=== PATIENT | male | born 1960 | race Caucasian/White ===

== ENCOUNTER 2018-07-13 16:46 | Outpatient (CLI) | payer BC ==
[2018-07-13 17:03] LABS: BASOPHILS # (AUTO) 0.1 10^3/uL (0.0-0.1); BASOPHILS % (AUTO) 0.9 %; EOSINOPHILS # (AUTO) 0.4 10^3/uL (0.0-0.7); EOSINOPHILS % (AUTO) 6.3 %; HGB - HEMOGLOBIN 13.9 g/dL (14.0-18.0); LYMPHOCYTES # (AUTO) 2.7 10^3/uL (1.5-3.5); LYMPHOCYTES % (AUTO) 40.3 %; MEAN CORPUSCULAR HEMOGLOBIN 29.9 pg (27.0-31.0); MEAN CORPUSCULAR HGB CONC 33.1 g/dL (32.0-36.0); MEAN CORPUSCULAR VOLUME 90.5 fL (80.0-94.0); MEAN PLATELET VOLUME 7.5 fL (7.4-11.4); MONOCYTES # (AUTO) 0.7 10^3/uL (0.0-1.0); MONOCYTES % (AUTO) 10.6 %; NEUTROPHILS # (AUTO) 2.8 10^3/uL (1.5-6.6); NEUTROPHILS % (AUTO) 41.9 %; PLT - PLATELET COUNT 295 10^3/uL (130-450); RED BLOOD COUNT 4.63 10^6/uL (4.70-6.10); RED CELL DISTRIBUTION WIDTH 13.8 % (12.0-15.0); WHITE BLOOD COUNT 6.7 x10^3/uL (4.8-10.8)
[2018-07-13 17:12] LABS: ALBUMIN 4.6 g/dL (3.2-5.5); ALBUMIN/GLOBULIN RATIO 1.3 (1.0-2.2); BILIRUBIN,TOTAL 0.4 mg/dL (0.2-1.0); CALCIUM 10.3 mg/dL (8.5-10.3); CREATININE 0.6 mg/dL (0.6-1.2); TOTAL PROTEIN 8.1 g/dL (6.7-8.2)
--- NOTE | 2018-07-14 13:36 | XRAY Report ---
Reason: ABDOMINAL PAIN,ACUTE Procedure Date: 07/13/2018 Accession Number: [id number] / [id number] Procedure: XR - Abdomen Acute CPT Code: FULL RESULT: EXAM: ABDOMINAL SERIES AND PA CHEST EXAM DATE: 07/13/2018 05:27 PM. CLINICAL HISTORY: ABDOMINAL PAIN,ACUTE. COMPARISON: None. TECHNIQUE: 3 views abdomen and 1 view chest. FINDINGS: CHEST: Lungs/Pleura: No focal opacities. No effusion or pneumothorax. Mediastinum: Within exam limitations, cardiomediastinal contour is normal. ABDOMEN: Bowel Gas Pattern: Within normal limits. No dilated loops or abnormal fluid levels. Free Air: None. Other: Surgical clips are seen in the right upper quadrant of the abdomen consistent with a previous cholecystectomy. Calcifications are seen within the pelvis that most likely represent phleboliths. There are degenerative changes of both hips, right greater than left. IMPRESSION: No evidence of a gastrointestinal obstruction. Moderate osteoarthritis of the right hip. Mild osteoarthritis of the left hip. RADIA
== END 2018-07-13 16:47 | disposition home or self-care (01) ==
LOC: DI 16:46
PROVIDERS: ATTEND Family Medicine
DX: R10.9 Unspecified abdominal pain (principal); M16.0 Bilateral primary osteoarthritis of hip
CPT/HCPCS: 36415; 74022; 80053; 82150; 83690; 85025

== ENCOUNTER 2018-12-22 07:27 | Outpatient (CLI) | payer BC ==
[2018-12-22 12:33] LABS: BASOPHILS % (AUTO) 1.1 %; EOSINOPHILS % (AUTO) 5.9 %; HGB - HEMOGLOBIN 14.1 g/dL (14.0-18.0); LYMPHOCYTES % (AUTO) 44.8 %; MEAN CORPUSCULAR HEMOGLOBIN 29.4 pg (27.0-31.0); MEAN CORPUSCULAR VOLUME 92.1 fL (80.0-94.0); MEAN PLATELET VOLUME 10.2 fL (7.4-11.4); MONOCYTES % (AUTO) 7.8 %; PLT - PLATELET COUNT 320 10^3/uL (130-450); RED BLOOD COUNT 4.79 10^6/uL (4.70-6.10); RED CELL DISTRIBUTION WIDTH 13.4 % (12.0-15.0); WHITE BLOOD COUNT 5.2 x10^3/uL (4.8-10.8)
[2018-12-22 12:37] LABS: ABNORMAL LYMPHS % (MANUAL) 0 %; BAND NEUTROPHILS % (MANUAL) 0 %
[2018-12-22 12:42] LABS: ALBUMIN 4.4 g/dL (3.2-5.5); ALBUMIN/GLOBULIN RATIO 1.3 (1.0-2.2); ALKALINE PHOSPHATASE 66 IU/L (42-121); ALT ALANINE AMINOTRANSFERASE 43 IU/L (10-60); AST ASPARTATE AMINOTRANSFERASE 28 IU/L (10-42); BILIRUBIN,TOTAL 1.2 mg/dL (0.2-1.0); BUN - BLOOD UREA NITROGEN 14 mg/dL (6-20); CALCIUM 9.9 mg/dL (8.5-10.3); CARBON DIOXIDE - CO2 24 mmol/L (21-32); CHLORIDE 101 mmol/L (101-111); CHOL/HDL RATIO 4.7 (<5.0); CHOLESTEROL 273 mg/dL; CREATININE 0.8 mg/dL (0.6-1.2); GFR - MDRD 99 (>89); GLUCOSE 108 mg/dL (70-100); HDL CHOLESTEROL 58 mg/dL; LDL CHOLESTEROL,CALCULATED 200 mg/dL; LDL/HDL RATIO 3.4 (<3.6); SODIUM 136 mmol/L (135-145); TOTAL PROTEIN 7.8 g/dL (6.7-8.2); VLDL CHOLESTEROL 15 mg/dL
[2018-12-22 12:59] LABS: EOSINOPHILS # (MANUAL) 0.2 10^3/uL (0-0.7); LYMPHOCYTES # (MANUAL) 2.8 10^3/uL (1.5-3.5); LYMPHOCYTES % (MANUAL) 54 %; MONOCYTES # (MANUAL) 0.2 10^3/uL (0.0-1.0); NEUTROPHILS % (MANUAL) 38 %
[2018-12-22 13:04] LABS: PLATELET ESTIMATE, MANUAL NORMAL (130-450,000) (NORMAL); PLATELET MORPHOLOGY NORMAL APPEARANCE (NORMAL); RBC MORPHOLOGY (MULTIPLE) NORMAL APPEARANCE (NORMAL)
[2018-12-22 13:05] LABS: DIFFERENTIAL COMMENT MANUAL DIFFERENTIAL
== END 2018-12-22 07:28 | disposition home or self-care (01) ==
LOC: LAB.WCP 07:27
PROVIDERS: ATTEND Physician Assistant Medical
DX: K21.9 Gastro-esophageal reflux disease without esophagitis (principal); R10.9 Unspecified abdominal pain; E78.5 Hyperlipidemia, unspecified; Z12.5 Encounter for screening for malignant neoplasm of prostate
CPT/HCPCS: 36415; 80053; 80061; 83721; 84153; 85025

== ENCOUNTER 2019-03-23 08:00 | Outpatient (CLI) | payer BC ==
[2019-03-23 13:19] LABS: ALBUMIN 4.5 g/dL (3.2-5.5); ALBUMIN/GLOBULIN RATIO 1.4 (1.0-2.2); ALKALINE PHOSPHATASE 60 IU/L (42-121); ALT ALANINE AMINOTRANSFERASE 39 IU/L (10-60); AST ASPARTATE AMINOTRANSFERASE 30 IU/L (10-42); BILIRUBIN,TOTAL 1.2 mg/dL (0.2-1.0); BUN - BLOOD UREA NITROGEN 12 mg/dL (6-20); CARBON DIOXIDE - CO2 26 mmol/L (21-32); CHLORIDE 103 mmol/L (101-111); CHOLESTEROL 275 mg/dL; CREATININE 0.8 mg/dL (0.6-1.2); GFR - MDRD 99 (>89); GLUCOSE 101 mg/dL (70-100); HDL CHOLESTEROL 60 mg/dL; LDL CHOLESTEROL,CALCULATED 197 mg/dL; LDL/HDL RATIO 3.3 (<3.6); SODIUM 136 mmol/L (135-145); TOTAL PROTEIN 7.7 g/dL (6.7-8.2); VLDL CHOLESTEROL 18 mg/dL
[2019-03-23 13:20] LABS: CHOL/HDL RATIO 4.6 (<5.0)
== END 2019-03-23 23:59 | disposition home or self-care (01) ==
LOC: LAB.WCP 08:00
PROVIDERS: ATTEND Physician Assistant Medical
DX: E78.5 Hyperlipidemia, unspecified (principal)
CPT/HCPCS: 36415; 80053; 80061; 83721

== ENCOUNTER 2019-06-20 07:02 | Outpatient (CLI) | payer BC ==
[2019-06-20 14:40] LABS: CHOL/HDL RATIO 3.1 (<5.0); CHOLESTEROL 188 mg/dL; HDL CHOLESTEROL 61 mg/dL; LDL CHOLESTEROL,CALCULATED 112 mg/dL; LDL/HDL RATIO 1.8 (<3.6); VLDL CHOLESTEROL 15 mg/dL
== END 2019-06-20 23:59 | disposition home or self-care (01) ==
LOC: LAB.WCP 07:02
PROVIDERS: ATTEND Physician Assistant Medical
DX: E78.5 Hyperlipidemia, unspecified (principal)
CPT/HCPCS: 36415; 80061; 83721

== ENCOUNTER → 2020-01-01 | Outpatient (CLI) | payer BC, OTHER ==
[2020-01-01 12:51] LABS: BASOPHILS % (AUTO) 0.9 %; EOSINOPHILS # (AUTO) 0.3 10^3/uL (0.0-0.7); EOSINOPHILS % (AUTO) 6.3 %; HGB - HEMOGLOBIN 14.4 g/dL (14.0-18.0); LYMPHOCYTES % (AUTO) 43.6 %; MEAN CORPUSCULAR HEMOGLOBIN 29.5 pg (27.0-31.0); MEAN CORPUSCULAR HGB CONC 32.1 g/dL (32.0-36.0); MEAN PLATELET VOLUME 10.2 fL (7.4-11.4); MONOCYTES # (AUTO) 0.4 10^3/uL (0.0-1.0); NEUTROPHILS # (AUTO) 1.9 10^3/uL (1.5-6.6); PLT - PLATELET COUNT 304 10^3/uL (130-450); RED BLOOD COUNT 4.88 10^6/uL (4.70-6.10); RED CELL DISTRIBUTION WIDTH 13.2 % (12.0-15.0); WHITE BLOOD COUNT 4.6 x10^3/uL (4.8-10.8)
[2020-01-01 13:05] LABS: ALBUMIN 4.7 g/dL (3.2-5.5); ALBUMIN/GLOBULIN RATIO 1.7 (1.0-2.2); ALKALINE PHOSPHATASE 64 IU/L (42-121); ALT ALANINE AMINOTRANSFERASE 42 IU/L (10-60); AST ASPARTATE AMINOTRANSFERASE 29 IU/L (10-42); BUN - BLOOD UREA NITROGEN 10 mg/dL (6-20); CALCIUM 9.7 mg/dL (8.5-10.3); CARBON DIOXIDE - CO2 26 mmol/L (21-32); CHLORIDE 102 mmol/L (101-111); CHOLESTEROL 194 mg/dL; CREATININE 0.8 mg/dL (0.6-1.2); GLUCOSE 110 mg/dL (70-100); HDL CHOLESTEROL 65 mg/dL; LDL CHOLESTEROL,CALCULATED 108 mg/dL; LDL/HDL RATIO 1.7 (<3.6); SODIUM 134 mmol/L (135-145); TOTAL PROTEIN 7.5 g/dL (6.7-8.2); VLDL CHOLESTEROL 21 mg/dL
== END ==
LOC: LAB.WCP 08:27
PROVIDERS: ATTEND Physician Assistant Medical
DX: Z00.00 Encounter for general adult medical examination without abnormal findings (principal); Z12.5 Encounter for screening for malignant neoplasm of prostate; E78.5 Hyperlipidemia, unspecified
CPT/HCPCS: 36415; 80053; 80061; 83721; 84153; 84443; 85025

== ENCOUNTER 2020-03-16 08:33 | Outpatient (CLI) | payer OTHER ==
--- NOTE | 2020-03-16 09:37 | XRAY Report ---
PROCEDURE: Lumbar Spine Complete INDICATIONS: LUMBAR RADICULOPATHY, RIGHT TECHNIQUE: 4 views of the lumbar spine were acquired. COMPARISON: MRI lumbar spine 09/28/2013 FINDINGS: Bones: 5 moa-liq-zzevlvo vertebrae are present. There is trace retrolisthesis of L1 on L2, L2 on L3 , L3 on L4, L4-L5 and L5 on S1. Mild multilevel degenerative disc space narrowing most notable at L3- 4, L4-5. Moderate to severe foraminal narrowing is present L5-S1, mild to moderate L4-5. No vertebral body compression fractures. No suspicious bony lesions. No bridging anterior osteophytes are noted . Soft tissues: Overlying bowel gas pattern is normal. No suspicious soft tissue calcifications. IMPRESSION: Degenerative changes most notable at L4-5 and L5-S1. Reviewed by: Leslie Baptiste MD on 03/16/2020 9:36 AM PDT Approved by: Leslie Baptiste MD on 03/16/2020 9:36 AM PDT Station ID: [id number]
== END 2020-03-16 08:34 | disposition home or self-care (01) ==
LOC: DI 08:33
PROVIDERS: ATTEND Family Medicine
DX: M43.16 Spondylolisthesis, lumbar region (principal); M43.17 Spondylolisthesis, lumbosacral region; M51.06 Intervertebral disc disorders with myelopathy, lumbar region; M48.07 Spinal stenosis, lumbosacral region
CPT/HCPCS: 72110

== ENCOUNTER 2020-06-26 08:00 | Outpatient (CLI) | payer OTHER ==
[2020-06-26 11:54] LABS: BASOPHILS % (AUTO) 0.6 %; EOSINOPHILS # (AUTO) 0.2 10^3/uL (0.0-0.7); EOSINOPHILS % (AUTO) 3.2 %; HGB - HEMOGLOBIN 14.8 g/dL (14.0-18.0); LYMPHOCYTES # (AUTO) 1.9 10^3/uL (1.5-3.5); MEAN CORPUSCULAR HEMOGLOBIN 30.2 pg (27.0-31.0); MEAN CORPUSCULAR HGB CONC 32.2 g/dL (32.0-36.0); MEAN CORPUSCULAR VOLUME 93.7 fL (80.0-94.0); MEAN PLATELET VOLUME 9.7 fL (7.4-11.4); MONOCYTES # (AUTO) 0.4 10^3/uL (0.0-1.0); MONOCYTES % (AUTO) 7.9 %; NEUTROPHILS # (AUTO) 2.2 10^3/uL (1.5-6.6); NEUTROPHILS % (AUTO) 48.1 %; PLT - PLATELET COUNT 319 10^3/uL (130-450); RED CELL DISTRIBUTION WIDTH 13.5 % (12.0-15.0); WHITE BLOOD COUNT 4.7 x10^3/uL (4.8-10.8)
[2020-06-26 12:40] LABS: ALBUMIN 4.9 g/dL (3.2-5.5); ALBUMIN/GLOBULIN RATIO 1.5 (1.0-2.2); BILIRUBIN,TOTAL 1.1 mg/dL (0.2-1.0); CALCIUM 10.7 mg/dL (8.5-10.3); CREATININE 0.8 mg/dL (0.6-1.2); TOTAL PROTEIN 8.1 g/dL (6.7-8.2)
[2020-06-26 13:04] LABS: H. PYLORIS ANTIGEN STL NEGATIVE (Negative)
== END 2020-06-26 23:59 ==
LOC: LAB.N 08:00
PROVIDERS: ATTEND Family Medicine
DX: R10.9 Unspecified abdominal pain (principal)
CPT/HCPCS: 36415; 80053; 82150; 83690; 85025; 87338

== ENCOUNTER 2021-01-28 08:00 | Outpatient (CLI) | payer OTHER ==
[2021-01-28 11:44] LABS: BASOPHILS % (AUTO) 0.9 %; EOSINOPHILS # (AUTO) 0.3 10^3/uL (0.0-0.7); EOSINOPHILS % (AUTO) 5.8 %; HCT - HEMATOCRIT 44.8 % (42.0-52.0); HGB - HEMOGLOBIN 14.6 g/dL (14.0-18.0); LYMPHOCYTES # (AUTO) 2.2 10^3/uL (1.5-3.5); LYMPHOCYTES % (AUTO) 46.5 %; MEAN CORPUSCULAR HEMOGLOBIN 30.3 pg (27.0-31.0); MEAN CORPUSCULAR HGB CONC 32.6 g/dL (32.0-36.0); MEAN CORPUSCULAR VOLUME 92.9 fL (80.0-94.0); MEAN PLATELET VOLUME 9.9 fL (7.4-11.4); MONOCYTES # (AUTO) 0.4 10^3/uL (0.0-1.0); MONOCYTES % (AUTO) 8.1 %; NEUTROPHILS # (AUTO) 1.8 10^3/uL (1.5-6.6); NEUTROPHILS % (AUTO) 38.5 %; PLT - PLATELET COUNT 286 10^3/uL (130-450); RED BLOOD COUNT 4.82 10^6/uL (4.70-6.10); RED CELL DISTRIBUTION WIDTH 13.4 % (12.0-15.0); WHITE BLOOD COUNT 4.7 x10^3/uL (4.8-10.8)
[2021-01-28 11:56] LABS: ALBUMIN 4.8 g/dL (3.2-5.5); ALBUMIN/GLOBULIN RATIO 1.7 (1.0-2.2); ALKALINE PHOSPHATASE 54 IU/L (42-121); ALT ALANINE AMINOTRANSFERASE 42 IU/L (10-60); AST ASPARTATE AMINOTRANSFERASE 28 IU/L (10-42); BILIRUBIN,TOTAL 1.3 mg/dL (0.2-1.0); BUN - BLOOD UREA NITROGEN 13 mg/dL (6-20); CHOL/HDL RATIO 3.3 (<5.0); CHOLESTEROL 212 mg/dL; CREATININE 0.8 mg/dL (0.6-1.2); GFR - MDRD 99 (>89); HDL CHOLESTEROL 64 mg/dL; LDL CHOLESTEROL,CALCULATED 133 mg/dL; LDL/HDL RATIO 2.1 (<3.6); TOTAL PROTEIN 7.6 g/dL (6.7-8.2); TRIGLYCERIDES 74 mg/dL; VLDL CHOLESTEROL 15 mg/dL
[2021-01-28 12:02] LABS: THYROID STIMULATING HORMONE 1.89 uIU/mL (0.34-5.60)
[2021-01-28 12:10] LABS: CALCIUM 10.1 mg/dL (8.5-10.3); CARBON DIOXIDE - CO2 27 mmol/L (21-32); CHLORIDE 103 mmol/L (101-111); GLUCOSE 108 mg/dL (70-100); POTASSIUM 4.2 mmol/L (3.5-5.0); SODIUM 137 mmol/L (135-145)
== END 2021-01-28 23:59 | disposition home or self-care (01) ==
LOC: LAB.WCP 08:00
PROVIDERS: ATTEND Physician Assistant Medical
DX: Z00.00 Encounter for general adult medical examination without abnormal findings (principal); Z12.5 Encounter for screening for malignant neoplasm of prostate
CPT/HCPCS: 36415; 80053; 80061; 83721; 84153; 84443; 85025

== ENCOUNTER 2021-12-12 16:57 | Outpatient (CLI) | payer OTHER ==
--- NOTE | 2021-12-12 17:48 | XRAY Report ---
PROCEDURE: Shoulder 3 View RT INDICATIONS: SHOULDER JOINT PAIN, RIGHT TECHNIQUE: 3 views of the shoulder were acquired. COMPARISON: None. FINDINGS: Bones: No fractures or dislocations. Moderate acromioclavicular joint and glenohumeral joint osteoa rthritic changes are seen. No suspicious bony lesions. Visualized ribs appear intact. Soft tissues: Amorphous calcifications adjacent to superior aspect of greater tuberosity is seen sugg estive of calcific tendinitis. IMPRESSION: Moderate right shoulder joint osteoarthritis. No fracture or dislocation. Suggestion of calcific tendinitis involving distal rotator cuff tendons. Reviewed by: Dwight Perez MD on 12/12/2021 5:47 PM PDT Approved by: Dwight Perez MD on 12/12/2021 5:47 PM PDT Station ID: [id number]
== END 2021-12-12 16:58 | disposition home or self-care (01) ==
LOC: DI.N 16:57
PROVIDERS: ATTEND Nurse Practitioner
DX: M19.011 Primary osteoarthritis, right shoulder (principal)

== ENCOUNTER 2022-01-28 07:35 | Outpatient (CLI) | payer OTHER ==
[2022-01-28 12:09] LABS: BASOPHILS # (AUTO) 0.1 10^3/uL (0.0-0.1); BASOPHILS % (AUTO) 1.2 %; EOSINOPHILS # (AUTO) 0.4 10^3/uL (0.0-0.7); HCT - HEMATOCRIT 43.3 % (42.0-52.0); HGB - HEMOGLOBIN 14.3 g/dL (14.0-18.0); LYMPHOCYTES # (AUTO) 2.4 10^3/uL (1.5-3.5); MEAN CORPUSCULAR VOLUME 90.8 fL (80.0-94.0); MONOCYTES # (AUTO) 0.4 10^3/uL (0.0-1.0); MONOCYTES % (AUTO) 8.3 %; NEUTROPHILS # (AUTO) 1.9 10^3/uL (1.5-6.6); NEUTROPHILS % (AUTO) 36.3 %; PLT - PLATELET COUNT 294 10^3/uL (130-450); RED BLOOD COUNT 4.77 10^6/uL (4.70-6.10); RED CELL DISTRIBUTION WIDTH 13.6 % (12.0-15.0); WHITE BLOOD COUNT 5.2 x10^3/uL (4.8-10.8)
[2022-01-28 12:32] LABS: ALBUMIN 4.7 g/dL (3.2-5.5); ALBUMIN/GLOBULIN RATIO 1.7 (1.0-2.2); ALKALINE PHOSPHATASE 54 IU/L (42-121); ALT ALANINE AMINOTRANSFERASE 34 IU/L (10-60); AST ASPARTATE AMINOTRANSFERASE 25 IU/L (10-42); BUN - BLOOD UREA NITROGEN 15 mg/dL (6-20); CALCIUM 10.4 mg/dL (8.5-10.3); CARBON DIOXIDE - CO2 28 mmol/L (21-32); CHLORIDE 103 mmol/L (101-111); CHOL/HDL RATIO 2.9 (<5.0); CHOLESTEROL 184 mg/dL; CREATININE 0.8 mg/dL (0.6-1.2); GFR - MDRD 98 (>89); GLUCOSE 106 mg/dL (70-100); HDL CHOLESTEROL 63 mg/dL; LDL CHOLESTEROL,CALCULATED 107 mg/dL; LDL/HDL RATIO 1.7 (<3.6); POTASSIUM 4.3 mmol/L (3.5-5.0); SODIUM 138 mmol/L (135-145); TOTAL PROTEIN 7.5 g/dL (6.7-8.2); TRIGLYCERIDES 70 mg/dL; VLDL CHOLESTEROL 14 mg/dL
[2022-01-28 12:40] LABS: THYROID STIMULATING HORMONE 2.1 uIU/mL (0.34-5.60)
== END 2022-01-28 07:36 | disposition home or self-care (01) ==
LOC: LAB.N 07:35
PROVIDERS: ATTEND Physician Assistant Medical
DX: Z00.00 Encounter for general adult medical examination without abnormal findings (principal); E78.5 Hyperlipidemia, unspecified; Z12.5 Encounter for screening for malignant neoplasm of prostate
CPT/HCPCS: 36415; 80053; 80061; 83721; 84153; 84443; 85025

== ENCOUNTER 2022-05-28 12:47 | Emergency (ER) | payer OTHER ==
[2022-05-28] MEDS ORDERED: KETOROLAC 60 MG/2 ML VIAL IM STA (14:39)
[2022-05-28] MEDS ORDERED: HYDROmorphone 1 MG/ML CARPUJECT IM STA (14:39)
[2022-05-28] MEDS ORDERED: predniSONE 20 MG TABLET PO STA (14:39)
[2022-05-28] MEDS ORDERED: oxyCODONE/ACET 5/325 Prepack 4 PO STA (14:39)
--- NOTE | 2022-05-28 14:44 | ED Physician Documentation ---
PD HPI BACK PAIN - Stated complaint Stated Complaint: BACK PX - Chief complaint Chief Complaint: Back Pain - History obtained from History obtained from: Patient - Additional information Additional information: 61-year-old gentleman with history of lumbar issues with 3 surgeries in the past most recently in 2014 has had about 2 months of worsening low back pain with radiation to the right buttock and right leg with numbness in the right lateral calf and the top of the foot. There is no associated incontinence, saddle anesthesia or fevers. He has been in physical therapy and been on Celebrex, i buprofen, and prednisone. The NSAIDs were helping but over the last few days are no longer effective. Review of Systems Constitutional: reports: Reviewed and negative Nose: reports: Reviewed and negative Cardiac: reports: Reviewed and negative Respiratory: reports: Reviewed and negative PD PAST MEDICAL HISTORY - Present Medications Home Medications: Ambulatory Orders Medication Instructions Recorded Confirmed Atorvastatin [Lipitor] 1 tab PO DAILY 05/28/22 05/28/22 Duloxetine HCl [Cymbalta] 60 mg PO DAILY 05/28/22 05/28/22 Ibuprofen [Motrin] 1 tablet PO Q8H PRN 05/28/22 05/28/22 Oxycodone HCl/Acetaminophen 1 - 2 each PO Q6H PRN #20 tablet 05/28/22 [Percocet 5-325 mg Tablet] predniSONE [Deltasone] 20 mg PO [id number] #21 tab 05/28/22 - Allergies Allergies/Adverse Reactions: Allergies Allergy/AdvReac Type Severity Reaction Status Date / Time No Known Drug Allergies Allergy Verified 05/28/22 13:12 PD ED PE NORMAL - Vitals Vital signs reviewed: Yes - General General: Alert and oriented X 3, No acute distress - HEENT HEENT: PERRL, EOMI - Neck Neck: Supple, no meningeal sign, No bony TTP - Extremities Extremities: Other (Diminished sensation in a right L4-L5 distribution but intact Achilles and patellar reflexes. No midline spinal tenderness. Normal gait.) - Neuro Neuro: Alert and oriented X 3, Normal speech Results - Vitals Vitals: Vital Signs - 24 hr 05/28/22 05/28/22 13:06 14:53 Temperature 37.1 C 36.6 C Heart Rate 104 H 99 Respiratory 18 16 Rate Blood Pressure 161/104 H 160/80 H O2 Saturation 99 100 Oxygen O2 Source Room air PD MEDICAL DECISION MAKING - ED course ED course: This patient has seemingly uncomplicated musculoskeletal back pain. The patient has no "red flags." Specifically denies IV drug use, fevers, incontinence, saddle anesthesia. Spinal epidural abscess was considered, given that the patient has no fever, is not diabetic, has no spinal tenderness, does not use IV drugs, and has no bilateral neurologic symptoms, the diagnosis of spinal epidural abscess is considered exceedingly unlikely. Departure - Departure Disposition: 01 Home, Self Care Clinical Impression: Lumbar radiculopathy Condition: Good Record reviewed to determine appropriate education?: Yes Instructions: ED Sciatica Prescriptions: predniSONE [Deltasone] 20 mg PO [id number] #21 tab Oxycodone HCl/Acetaminophen [Percocet 5-325 mg Tablet] 1 - 2 each PO Q6H PRN #20 tablet PRN Reason: pain Comments: As discussed, based on the location of your symptoms I suspect you have a right- sided disc herniation at L4-L5. You should follow-up with the sports medicine doctor as you have planned. In the meantime I sent your prescriptions electronically to the [facility] in [place]. I am prescribing a short course of narcotic pain medication for you. These are potentially dangerous and addictive medications that should be used carefully. These medications may constipate you. Take an klnq-sic-igrsqqa stool softener (docusate) twice daily with plenty of water while taking these medications. If you go 24 hours without a bowel movement, take fgwi-tbg-nsiykwx miralax, per package instructions. Do not drink or drive while taking these medications. If you received narcotic or sedating medications while in the emergency department, do not drive for 24 hours. Store this medication in a safe, secure place and out of reach of children. It is a violation of federal law to give or sell this medication to another person or to use in a manner other than prescribed. The ED will not refill narcotic prescriptions, including prescriptions lost or stolen. To dispose of unwanted medications: 1. [facility] at [address] in [place] has a medication drop box. They accept prescription medications (in pill form) Wednesday through Wednesday 9:00 a.m. to 5:00 p.m. 2. The [facility] [employer] accepts prescription medications (in pill form only) for disposal year round. Call for more information. 3. Contact the [facility] for the next [facility] sponsored prescription drug collection event. , [phone], or [phone]; Note that many narcotic pain relievers also contain Tylenol/acetaminophen. Please ensure that your total dose of acetaminophen from all sources does not exceed 3 g (3000 mg) per day. Discharge Date/Time: 05/28/22 15:11
[2022-05-28 14:54] VITALS: BP 160/80
== END 2022-05-28 15:11 | disposition home or self-care (01) ==
LOC: ED 12:47
DX: M54.16 Radiculopathy, lumbar region (principal)
CPT/HCPCS: 96372; 99283; J1170; J7512

== ENCOUNTER 2022-06-04 11:25 | Emergency (ER) | payer OTHER ==
[2022-06-04 12:41] LABS: BASOPHILS % (AUTO) 0.1 %; EOSINOPHILS % (AUTO) 0.2 %; HCT - HEMATOCRIT 44.1 % (42.0-52.0); HGB - HEMOGLOBIN 15.1 g/dL (14.0-18.0); LYMPHOCYTES # (AUTO) 1.5 10^3/uL (1.5-3.5); LYMPHOCYTES % (AUTO) 15.3 %; MEAN CORPUSCULAR HEMOGLOBIN 30.4 pg (27.0-31.0); MEAN CORPUSCULAR HGB CONC 34.2 g/dL (32.0-36.0); MEAN CORPUSCULAR VOLUME 88.9 fL (80.0-94.0); MEAN PLATELET VOLUME 8.9 fL (7.4-11.4); MONOCYTES # (AUTO) 0.9 10^3/uL (0.0-1.0); MONOCYTES % (AUTO) 9.4 %; NEUTROPHILS # (AUTO) 7.3 10^3/uL (1.5-6.6); NEUTROPHILS % (AUTO) 74.6 %; PLT - PLATELET COUNT 326 10^3/uL (130-450); RED BLOOD COUNT 4.96 10^6/uL (4.70-6.10); WHITE BLOOD COUNT 9.8 x10^3/uL (4.8-10.8)
[2022-06-04] MEDS ORDERED: MORPHINE 2 MG/ML CARPUJECT IVP STA ×3 (12:43→16:58)
--- NOTE | 2022-06-04 12:45 | ED Physician Documentation ---
History of Present Illness - Stated complaint Stated Complaint: BACK PX - Chief complaint Chief Complaint: Neuro - History obtained from History obtained from: Patient - Additonal information Additional information: This is a very nice 61-year-old male with a past medical history of multiple back surgeries, L4-L5 bulging disc, and left-sided piriformis syndrome who presents with worsening lower lumbar pain radiating to the right leg now accompanied by some numbness in the perianal area and patient was not aware that he was having bowel movements both yesterday and today. The patient has a histor y of multiple back issues and was seen here for similar about a week ago at which time his work-up was stable and he was referred to sports medicine for likely bulging disks. The patient has also been referred to neurosurgery at [facility] though he has not been able to make an appointment yet because he has needed an MRI before he can make that appointment. Patient states over the course last week, his pain has gotten worse. He was seen here on and then followed up with his PCP on Wednesday who started him on Lyrica which she states is helping somewhat and he is taking 1 tablet of oxycodone every 6 hours or so as well as continuing the prednisone taper that was prescribed last week. He states no significant improvement in the pain and he was concerned today due to the fact that he sat on to have a bowel movement on 2 different occasions and was not aware that any stool had come out until he stood up and left in the toilet. He denies any numbness in the pelvis, but does have some numbness in the right buttocks into the perianal area and has increasing pain so much so that he really has difficulty moving at all. He has some pain radiating down the leg, does not have any foot drop of the right or left foot, he has not had any fever, no history of IV drug use, no history of epidural abscess. He denies any falls or trauma recently. Review of Systems Ten Systems: 10 systems reviewed and negative (Except as noted in HPI.) PD PAST MEDICAL HISTORY - Past Medical History Past Medical History: Yes Other Past Medical History: Chronic lumbar pain - Past Surgical History Past Surgical History: Yes Ortho: Spine surgery - Present Medications Home Medications: Ambulatory Orders Medication Instructions Recorded Confirmed Atorvastatin [Lipitor] 1 tab PO DAILY 05/28/22 05/28/22 Duloxetine HCl [Cymbalta] 60 mg PO DAILY 05/28/22 05/28/22 Ibuprofen [Motrin] 1 tablet PO Q8H PRN 05/28/22 05/28/22 Oxycodone HCl/Acetaminophen 1 - 2 each PO Q6H PRN #20 tablet 05/28/22 [Percocet 5-325 mg Tablet] predniSONE [Deltasone] 20 mg PO [id number] #21 tab 05/28/22 oxyCODONE/ACET 5/325 [Percocet 5 1 each PO ONCE #14 tablet 06/04/22 mg/325 mg] - Allergies Allergies/Adverse Reactions: Allergies Allergy/AdvReac Type Severity Reaction Status Date / Time No Known Drug Allergies Allergy Verified 06/04/22 12:21 - Social History Does the pt smoke?: No Smoking Status: Never smoker Does the pt have substance abuse?: No - Immunizations Immunizations are current?: Yes - POLST Patient has POLST: No PD ED PE NORMAL - Vitals Vital signs reviewed: Yes - General General: Alert and oriented X 3, No acute distress, Well developed/nourished - HEENT HEENT: Atraumatic, Pharynx benign - Cardiac Cardiac: RRR, No murmur - Respiratory Respiratory: No respiratory distress, Clear bilaterally - Abdomen Abdomen: Normal bowel sounds, Soft, Non tender, Non distended - Derm Derm: Normal color, Warm and dry - Extremities Extremities: No deformity, Other (Slight decrease in strength of the right foot as compared to left. The patient is able to lift Right leg off the bed with no significant lower back pain. He has normal sensation of the entire leg but decreased sensation of the right buttocks. There is tenderness at the lumbosacral spine with no s) - Neuro Neuro: Alert and oriented X 3 Eye Opening: Spontaneous Motor: Obeys Commands Verbal: Oriented GCS Score: 15 - Psych Psych: Normal mood, Normal affect Results - Vitals Vitals: Vital Signs - 24 hr 06/04/22 06/04/22 06/04/22 12:16 13:17 16:09 Temperature 36.8 C Heart Rate 74 88 88 Respiratory 14 15 14 Rate Blood Pressure 157/92 H 131/70 H 127/66 O2 Saturation 95 96 97 06/04/22 16:56 Temperature Heart Rate 88 Respiratory 14 Rate Blood Pressure 131/69 H O2 Saturation 97 Oxygen O2 Source Room air - Labs Labs: Laboratory Tests 06/04/22 06/04/22 06/04/22 12:36 12:36 12:54 WBC 9.8 RBC 4.96 Hgb 15.1 Hct 44.1 MCV 88.9 MCH 30.4 MCHC 34.2 RDW 13.0 Plt Count 326 MPV 8.9 Neut # (Auto) 7.3 H Lymph # (Auto) 1.5 [place] # (Auto) 0.9 Eos # (Auto) 0.0 Baso # (Auto) 0.0 Absolute Nucleated RBC 0.00 Nucleated RBC % 0.0 Sodium 134 L Potassium 4.0 Chloride 98 L Carbon Dioxide 27 Anion Gap 9.0 BUN 18 Creatinine 0.9 Estimated GFR (MDRD) 86 L Glucose 110 H Calcium 10.5 H Urine Color YELLOW Urine Clarity CLEAR Urine pH 6.5 Ur Specific Agate 1.010 Urine Protein NEGATIVE Urine Glucose (UA) NEGATIVE Urine Ketones NEGATIVE Urine Occult Blood NEGATIVE Urine Nitrite NEGATIVE Urine Bilirubin NEGATIVE Urine Urobilinogen 1 (NORMAL) Ur Leukocyte Esterase NEGATIVE Urine RBC None Seen Urine WBC 0-3 Ur Squamous Epith Cells NONE SEEN Urine Bacteria None Seen Urine Culture Comments NOT INDICATED PD MEDICAL DECISION MAKING - ED course Complexity details: reviewed old records, reviewed results, re-evaluated patient, considered differential, d/w patient, d/w family ED course: This is a 61-year-old male with past medical history as noted above who presented with ongoing right lower back pain radiating to the right buttocks with some numbness and difficulty Feeling bowel movements over the course of the last day though no other focal neuro changes, no foot drop, no saddle anesthesia. His pain had also increased and was not relieved by the pain regimen that he has been using at home. Therefore did obtain an MRI given patient's history of back surgeries, and his new numbness and this showed L5-S1 disc protrusion which is likely causing the patient's symptoms. He does not need immediate transfer for neurosurgery however was advised that he will need close outpatient follow-up and may be a surgical candidate if no improvement in his symptoms with supportive measures and physical therapy. He has asked me to fax his MRI results to Dr. Joy his back surgeon's office which has been done and a copy of the disc was provided to the patient to take to his appointment. We will discharge him home with an additional short course of oxycodone and instructions and precautions given for release of this narcotic medication. He was advised to continue the other medications he is previously been prescribed and follow-up with his PCP for ongoing pain management. He is able to get into neurosurgery. Return precautions reviewed if he had Saddle anesthesia, incontinence or difficulty with urination, foot drop or drag, or other new concerns. Departure - Departure Disposition: 01 Home, Self Care Clinical Impression: Degeneration of intervertebral disc at L5-S1 level Condition: Good Instructions: Lumbar Pain Causes, Lumbar Radiculopathy Prescriptions: oxyCODONE/ACET 5/325 [Percocet 5 mg/325 mg] 1 each PO ONCE #14 tablet Comments: Your MRI showed multilevel degenerative changes throughout the lumbar spine which is similar to the prior MRI however you do have some extrusion of the disc at the L5-S1 level which is causing the increased pain and symptoms that you are feeling. Treatment is the same as previously discussed, largely supportive including pain medication and physical therapy though you should follow-up with the spine surgeon to discuss other options as well. Please follow up with spine surgery as soon as appointment available. Avoid lifting/twisting until then. See sports medicine and PT as previously discussed. A short course of narcotic pain medication was given. Return if new or worsening symptoms Including difficulty with urination, groin numbness, fever, leg weakness or foot drop/drag.
[2022-06-04 12:51] LABS: CALCIUM 10.5 mg/dL (8.5-10.3); CREATININE 0.9 mg/dL (0.6-1.2)
[2022-06-04 13:13] LABS: BILIRUBIN,URINE NEGATIVE (NEGATIVE); GLUCOSE, URINE (UA) NEGATIVE (NEGATIVE); KETONES,URINE (UA) NEGATIVE (NEGATIVE); LEUKOCYTE ESTERASE, URINE NEGATIVE (NEGATIVE); NITRITE,URINE NEGATIVE (NEGATIVE); OCCULT BLOOD,URINE NEGATIVE (NEGATIVE); PH,URINE 6.5 PH (5.0-7.5); PROTEIN,URINE NEGATIVE (NEGATIVE); UROBILINOGEN,URINE 1 (NORMAL) E.U./dL (NORMAL)
[2022-06-04 13:19] LABS: BACTERIA,URINE None Seen /HPF (None Seen); CLARITY,URINE CLEAR (CLEAR); RBC,URINE None Seen /HPF (0-5); SQUAMOUS EPITHELIAL CELL,UR NONE SEEN (<= Few); WBC,URINE 0-3 /HPF (0-3)
[2022-06-04] MEDS ORDERED: GADOBUTROL 10 MMOL/10 ML VIAL ONE (15:11)
[2022-06-04] MEDS ORDERED: GADOBUTROL 10 MMOL/10 ML VIAL IVP ONE (15:38)
--- NOTE | 2022-06-04 16:34 | MRI Report ---
PROCEDURE: LUMBAR SPINE W/WO INDICATIONS: worsening L4-5 pain, new bowel incontinence TECHNIQUE: Noncontrast sagittal T1 spin echo and T2 fast spin echo, sagittal STIR, axial T1 and T2 fast spin ech o through the lumbar spine. In cases with scoliosis, additional coronal T2 fast spin echo may be per formed. After the administration of contrast, sagittal and axial T1 spin echo with fat saturation th rough the lumbar spine. COMPARISON: MRI lumbar spine 09/08/2013, x-ray spine 03/16/2020 FINDINGS: Image quality: Excellent. Alignment and curvature: There is normal bony alignment. Marrow: Marrow is of normal overall signal. Schmorl's node is noted along the superior endplate of T12 with minimal reactive change. No acute vertebral body compression fractures. No suspicious marro w enhancement. Spinal cord: Conus medullaris terminates at the L2 level. Visualized spinal cord demonstrates raul l signal, without suspicious enhancement. Paraspinous soft tissues: No paravertebral masses or abnormal enhancement. Discs: Minimal scattered disc desiccation is present throughout the lumbar spine. L1-L2: No disc bulge, spinal stenosis or foraminal narrowing. No interval change. L2-L3: Minimal disc bulge with unchanged trace canal narrowing. No foraminal narrowing. Minimal ep idural lipomatosis. Mild facet and ligamentum flavum hypertrophy. L3-L4: Minimal disc bulge without spinal stenosis. Minimal to mild bilateral foraminal narrowing sl ightly progressive. Minimal epidural lipomatosis. Facet and ligamentum flavum hypertrophy are present . L4-L5: Mild disc bulge without spinal stenosis. Right hemilaminectomy is present. There is narrowin g of the foramina bilaterally without interval change. L5-S1: Mild disc bulge with superimposed right posterior paracentral protrusion with small extrusio n. There is significant compromise of the right lateral recess. Mild bilateral foraminal narrowing IMPRESSION: Multilevel degenerative changes overall stable compared to prior exam. However, it is noted there is a new extrusion at L5-S1 causing significant compromise of the right lateral recess. Reviewed by: Leslie Baptiste MD on 06/04/2022 4:33 PM PST Approved by: Leslie Baptiste MD on 06/04/2022 4:33 PM PST Station ID: [id number]
[2022-06-04 17:36] VITALS: BP 130/70
== END 2022-06-04 17:37 | disposition home or self-care (01) ==
LOC: EDUNIT# 11:25 → ED 11:25
DX: M51.27 Other intervertebral disc displacement, lumbosacral region (principal); M51.37 Other intervertebral disc degeneration, lumbosacral region
CPT/HCPCS: 36415; 72158; 80048; 81001; 85025; 96374; 96376; 99284; A9585; 87086

== ENCOUNTER → 2022-06-04 | Outpatient (CLI) | payer OTHER | END | disposition critical access hospital (66) | LOC: EMS 11:20 | DX: M54.50 Low back pain, unspecified (principal); R20.0 Anesthesia of skin | CPT/HCPCS: A0425; A0427 ==

== ENCOUNTER 2022-11-11 09:26 | Outpatient (CLI) | payer OTHER ==
--- NOTE | 2022-11-11 11:14 | XRAY Report ---
PROCEDURE: Lumbar Spine 2 View INDICATIONS: S/P LUMBAR SPINAL FUSION TECHNIQUE: 3 views of the lumbar spine were acquired. COMPARISON: Plain film 12/12/2021, lumbar spine MRI 06/04/2022 FINDINGS: Bones: 5 vmu-hvz-sxcpdmu vertebrae are present. L4-S1 posterior fusion and disc spacer hardware is p resent and intact. There is normal bony alignment. Mild posterior disc height loss at L3-4 and partia lly imaged at T12-L1. No vertebral body compression fractures. No suspicious bony lesions. Soft tissues: Overlying bowel gas pattern is normal. No suspicious soft tissue calcifications. Cho lecystectomy clips. IMPRESSION: 1. Intact lumbosacral fusion hardware with maintenance of normal alignment. 2. Otherwise minor degenerative changes. Reviewed by: Ciara Payton MD on 11/11/2022 11:12 AM PDT Approved by: Ciara Payton MD on 11/11/2022 11:12 AM PDT Station ID: [id number]
== END 2022-11-11 09:27 | disposition home or self-care (01) ==
LOC: DI 09:26
PROVIDERS: ATTEND Physician Assistant
DX: M47.816 Spondylosis without myelopathy or radiculopathy, lumbar region (principal); Z98.1 Arthrodesis status

== ENCOUNTER 2022-12-14 16:13 | Emergency (ER) | payer OTHER ==
[2022-12-14 16:29] VITALS: BP 159/103
--- NOTE | 2022-12-14 16:43 | ED Physician Documentation ---
History of Present Illness - Stated complaint Stated Complaint: RT FT/VIVAR NUMB - Chief complaint Chief Complaint: Ext Problem - History obtained from History obtained from: Patient - Additonal information Additional information: 62-year-old gentleman had a lumbar radiculopathy at L5-S1 due to disc herniation and had a discectomy with L4-S1 fusion at [facility] in August. He is always had some numbness in the right leg on the top of the foot but has been worse with increased activity over the last few days. He denies any back or other pains with this. No saddle anesthesia, bowel or bladder incontinence or fevers. PD PAST MEDICAL HISTORY - Past Surgical History Past Surgical History: Yes Ortho: Spine surgery - Present Medications Home Medications: Ambulatory Orders Medication Instructions Recorded Confirmed Atorvastatin [Lipitor] 1 tab PO DAILY 05/28/22 05/28/22 Duloxetine HCl [Cymbalta] 60 mg PO DAILY 05/28/22 05/28/22 Ibuprofen [Motrin] 1 tablet PO Q8H PRN 05/28/22 05/28/22 Oxycodone HCl/Acetaminophen 1 - 2 each PO Q6H PRN #20 tablet 05/28/22 [Percocet 5-325 mg Tablet] predniSONE [Deltasone] 20 mg PO [id number] #21 tab 05/28/22 oxyCODONE/ACET 5/325 [Percocet 5 1 each PO ONCE #14 tablet 06/04/22 mg/325 mg] - Allergies Allergies/Adverse Reactions: Allergies Allergy/AdvReac Type Severity Reaction Status Date / Time No Known Drug Allergies Allergy Verified 12/14/22 16:25 - Social History Does the pt smoke?: No Smoking Status: Never smoker Does the pt have substance abuse?: No - Immunizations Immunizations are current?: Yes - POLST Patient has POLST: No PD ED PE NORMAL - Vitals Vital signs reviewed: Yes - General General: Alert and oriented X 3, No acute distress - Abdomen Abdomen: Non tender - Extremities Extremities: Other (The patient has equal and normal Achilles unable to check left patellar reflex due to ankle fusion on that side. Normal sensation in all areas of the legs. Patient denies saddle anesthesia. Normal strength in flexion-extension at the ankles, knees, and flexion of the hips.) - Neuro Neuro: Alert and oriented X 3, Normal speech Results - Vitals Vitals: Vital Signs - 24 hr 06/12/23 16:21 Temperature 36.7 C Heart Rate 98 Respiratory 16 Rate Blood Pressure 159/103 H O2 Saturation 99 Oxygen O2 Source Room air PD Medical Decision Making - ED course ED course: He was sent in from [facility] for concern for stroke, but this is an exacerbation of his prior radiculopathy. There are no symptoms or signs in the arm or face. We discussed repeat MRI but there is no urgent indication for this. I offered a course of steroids which she declined finding them unhelpful with side effects in the past. Departure - Departure Disposition: 01 Home, Self Care Clinical Impression: Lumbar radiculopathy Condition: Good Record reviewed to determine appropriate education?: Yes Instructions: ED Sciatica Comments: As discussed, it is okay I think to avoid steroids as many people do not find them helpful. You could trial some NSAIDs, perhaps 600 mg of ibuprofen 3-4 times a day for the next few days. Would not want you taking it for more than a week due to side effects either. Scale back on your physical activity just a bit and follow-up with your surgeon if not better in a week or 2.
== END 2022-12-14 16:55 | disposition home or self-care (01) ==
LOC: ED 16:13
DX: M54.16 Radiculopathy, lumbar region (principal)
CPT/HCPCS: 99281; 99283

== ENCOUNTER 2022-12-23 09:30 | Outpatient (CLI) | payer OTHER ==
[2022-12-24 06:39] LABS: RPR Non Reactive (Non Reactive)
[2022-12-24 07:10] LABS: HSV 1 IGG TYPE SPEC <0.91 index (0.00-0.90); HSV 2 IGG TYPE SPEC <0.91 index (0.00-0.90)
== END 2022-12-23 09:45 | disposition home or self-care (01) ==
LOC: LAB.N 09:30
PROVIDERS: ATTEND Registered Nurse
DX: N48.9 Disorder of penis, unspecified (principal)
CPT/HCPCS: 36415; 86592; 86695; 86696; 87070; 87077; 87205; 87252

== ENCOUNTER 2023-01-25 09:15 | Outpatient (CLI) | payer OTHER | END 2023-01-25 09:30 | disposition home or self-care (01) | LOC: LAB.N 09:15 | PROVIDERS: ATTEND Nurse Practitioner | DX: N48.9 Disorder of penis, unspecified (principal) | CPT/HCPCS: 87070; 87077; 87205; 87255 ==

== ENCOUNTER 2023-01-29 08:28 | Outpatient (CLI) | payer OTHER ==
[2023-01-29 12:32] LABS: BASOPHILS # (AUTO) 0.1 10^3/uL (0.0-0.1); BASOPHILS % (AUTO) 1.1 %; EOSINOPHILS # (AUTO) 0.2 10^3/uL (0.0-0.7); EOSINOPHILS % (AUTO) 4.8 %; HCT - HEMATOCRIT 44.3 % (42.0-52.0); HGB - HEMOGLOBIN 14.3 g/dL (14.0-18.0); LYMPHOCYTES # (AUTO) 1.9 10^3/uL (1.5-3.5); LYMPHOCYTES % (AUTO) 42.9 %; MEAN CORPUSCULAR HEMOGLOBIN 29.4 pg (27.0-31.0); MEAN CORPUSCULAR HGB CONC 32.3 g/dL (32.0-36.0); MEAN CORPUSCULAR VOLUME 91.2 fL (80.0-94.0); MEAN PLATELET VOLUME 10.1 fL (7.4-11.4); MONOCYTES # (AUTO) 0.3 10^3/uL (0.0-1.0); MONOCYTES % (AUTO) 7.8 %; NEUTROPHILS # (AUTO) 1.9 10^3/uL (1.5-6.6); NEUTROPHILS % (AUTO) 43.4 %; PLT - PLATELET COUNT 293 10^3/uL (130-450); RED BLOOD COUNT 4.86 10^6/uL (4.70-6.10); RED CELL DISTRIBUTION WIDTH 14.3 % (12.0-15.0); WHITE BLOOD COUNT 4.4 x10^3/uL (4.8-10.8)
[2023-01-29 12:50] LABS: ALBUMIN 4.7 g/dL (3.2-5.5); ALBUMIN/GLOBULIN RATIO 1.9 (1.0-2.2); ALKALINE PHOSPHATASE 77 IU/L (42-121); ALT ALANINE AMINOTRANSFERASE 34 IU/L (10-60); AST ASPARTATE AMINOTRANSFERASE 22 IU/L (10-42); BUN - BLOOD UREA NITROGEN 13 mg/dL (6-20); CALCIUM 10.6 mg/dL (8.5-10.3); CARBON DIOXIDE - CO2 29 mmol/L (21-32); CHLORIDE 103 mmol/L (101-111); CHOLESTEROL 213 mg/dL; CREATININE 0.8 mg/dL (0.6-1.3); GFR - MDRD 98 (>89); GLUCOSE 112 mg/dL (74-104); HDL CHOLESTEROL 70 mg/dL; LDL CHOLESTEROL,CALCULATED 131 mg/dL; LDL/HDL RATIO 1.9 (<3.6); LIPASE 61 U/L (11-82); POTASSIUM 4.1 mmol/L (3.5-4.5); SODIUM 136 mmol/L (135-145); TOTAL PROTEIN 7.2 g/dL (6.4-8.9); TRIGLYCERIDES 60 mg/dL (48-352); VLDL CHOLESTEROL 12 mg/dL
[2023-01-29 13:01] LABS: THYROID STIMULATING HORMONE 1.82 uIU/mL (0.34-5.60)
== END 2023-01-29 08:29 | disposition home or self-care (01) ==
LOC: LAB.N 08:28
PROVIDERS: ATTEND Physician Assistant Medical
DX: E78.5 Hyperlipidemia, unspecified (principal); K21.9 Gastro-esophageal reflux disease without esophagitis; Z12.5 Encounter for screening for malignant neoplasm of prostate; Z13.29 Encounter for screening for other suspected endocrine disorder; Z79.899 Other long term (current) drug therapy
CPT/HCPCS: 36415; 80053; 80061; 83690; 83721; 84153; 84443; 85025

== ENCOUNTER 2024-02-07 07:34 | Outpatient (CLI) | payer OTHER ==
[2024-02-07 07:45] LABS: BASOPHILS # (AUTO) 0.1 10^3/uL (0.0-0.1); BASOPHILS % (AUTO) 1.4 %; EOSINOPHILS # (AUTO) 0.6 10^3/uL (0.0-0.7); EOSINOPHILS % (AUTO) 12.1 %; HCT - HEMATOCRIT 43.1 % (42.0-52.0); HGB - HEMOGLOBIN 14.4 g/dL (14.0-18.0); LYMPHOCYTES % (AUTO) 41.4 %; MEAN CORPUSCULAR HEMOGLOBIN 30.7 pg (27.0-31.0); MEAN CORPUSCULAR HGB CONC 33.4 g/dL (32.0-36.0); MEAN CORPUSCULAR VOLUME 91.9 fL (80.0-94.0); MEAN PLATELET VOLUME 9.1 fL (7.4-11.4); MONOCYTES # (AUTO) 0.3 10^3/uL (0.0-1.0); NEUTROPHILS # (AUTO) 1.9 10^3/uL (1.5-6.6); NEUTROPHILS % (AUTO) 37.9 %; PLT - PLATELET COUNT 270 10^3/uL (130-450); RED BLOOD COUNT 4.69 10^6/uL (4.70-6.10); RED CELL DISTRIBUTION WIDTH 13.1 % (12.0-15.0); WHITE BLOOD COUNT 4.9 x10^3/uL (4.8-10.8)
[2024-02-07 08:12] LABS: ALBUMIN 4.8 g/dL (3.2-5.5); ALKALINE PHOSPHATASE 64 IU/L (42-121); ALT ALANINE AMINOTRANSFERASE 32 IU/L (10-60); AST ASPARTATE AMINOTRANSFERASE 22 IU/L (10-42); BUN - BLOOD UREA NITROGEN 11 mg/dL (6-20); CALCIUM 10.3 mg/dL (8.5-10.3); CARBON DIOXIDE - CO2 29 mmol/L (21-32); CHLORIDE 103 mmol/L (101-111); CHOL/HDL RATIO 2.9 (<5.0); CHOLESTEROL 183 mg/dL; CREATININE 0.8 mg/dL (0.6-1.3); GFR - MDRD 98 (>89); GLUCOSE 118 mg/dL (74-104); HDL CHOLESTEROL 64 mg/dL; LDL CHOLESTEROL,CALCULATED 106 mg/dL; LDL/HDL RATIO 1.7 (<3.6); POTASSIUM 4.2 mmol/L (3.5-4.5); SODIUM 136 mmol/L (135-145); TOTAL PROTEIN 7.2 g/dL (6.4-8.9); TRIGLYCERIDES 65 mg/dL; VLDL CHOLESTEROL 13 mg/dL
[2024-02-07 08:23] LABS: THYROID STIMULATING HORMONE 2.94 uIU/mL (0.34-5.60)
== END 2024-02-07 07:35 | disposition home or self-care (01) ==
LOC: LAB 07:34
PROVIDERS: ATTEND Physician Assistant Medical
DX: Z00.00 Encounter for general adult medical examination without abnormal findings (principal); E78.5 Hyperlipidemia, unspecified; Z12.5 Encounter for screening for malignant neoplasm of prostate
CPT/HCPCS: 36415; 80053; 80061; 83721; 84153; 84443; 85025